=== PATIENT | male | born 1965 | race Two or more races ===

== ENCOUNTER 2019-04-30 15:59 | Emergency (ER) | payer MEDICARE, OTHER ==
[~2019-04-30] VITALS: Ht 167.6 cm; Wt 113.4 kg
[2019-04-30 16:00] VITALS: BP 146/70
--- NOTE | 2019-04-30 16:00 | NUR ---
ED Nurse Note: Pt brought into ED from [facility] by [facility] Med ambulance unit [id number] for c/o n/v x1 day. Pt states he was recently sick and now is having the same symtpoms. Pt also reports nose bleed at 0300 today. Dried blood in nares noted. Pt denies any pain at the moment. Pt is aaox4, no cardiac or respiratory distress noted. Pt is ambulatory with cane. Pt states he is legally blind. Will continue to monitor.
--- NOTE | 2019-04-30 16:02 | Emergency Room Report ---
History of Present Illness General Chief Complaint: Vomiting Source: EMS Present Illness HPI Patient is a 54-year-old male presents after increased nausea and vomiting. Recently had been having increased nonbloody emesis. Reports having some generalized abdominal cramping. Patient states that there have been multiple patients at his facility who have had stomach virus. He had recently been hospitalized at [facility] Denies any abdominal discomfort currently. Reports having an episode of nosebleeding last night. Denies any current dizziness or lightheadedness. Allergies: Uncoded Allergies: PEANUT BUITTER (Allergy, Unknown, 04/30/19) Patient History Reviewed Nursing Documentation: PMH: Agreed; PSxH: Agreed Nursing Documentation-PMH Hx Hypertension: Yes Hx Diabetes: Yes Review of Systems All Other Systems: negative except mentioned in HPI Physical Exam Vital Signs Date Time Temp Pulse Resp B/P (MAP) Pulse Ox O2 Delivery O2 Flow Rate FiO2 04/30/19 15:47 100.0 110 18 146/70 (95) 95 Room Air Sp02 EP Interpretation: reviewed, normal General Appearance: normal inspection, well appearing, no apparent distress, alert, GCS 15 Head: atraumatic Eyes: bilateral eye other - Conjugate gaze blind in right eye ENT: hearing grossly normal, normal voice, other - Clotted nasal blood to the left nare Neck: normal inspection, full range of motion, supple, no bony tend Respiratory: normal inspection, lungs clear, normal breath sounds, no respiratory distress, no retraction, no wheezing Cardiovascular #1: regular rate, rhythm, no edema Gastrointestinal: normal inspection, normal bowel sounds, non tender, soft, no guarding, no hernia Genitourinary: no CVA tenderness Musculoskeletal: normal inspection, back normal, normal range of motion Neurologic: alert, motor strength/tone normal, fire control mechanic III-XII nml as tested, EOM palsy, responsive, speech normal, normal inspection Psychiatric: normal inspection, judgement/insight normal, mood/affect normal Skin: no rash Medical Decision Making Diagnostic Impression: Primary Impression: Gastroenteritis ER Course Presented for nausea and vomiting. Differential diagnosis include was not limited to gastroenteritis, bowel obstruction, appendicitis among others. Because of complexity of patient's case laboratory tests were ordered. Patient does not show any focal tenderness. He was given IV antiemetics.Patient given IV fluids. He was noted to have improvement of symptoms over time. Patient will be discharged back to his facility. He was given medications for symptomatic treatment he was advised to follow-up with primary care physician for recheck and return if worse. The patient is advised to follow up with primary care doctor in 1-2 days. Patient is advised to return if any worsening condition or if any changes in status that are concerning. This report is dictated with [employer] et[employer] database developer software which may occasionally lead to discrepancies related to use of this software. Labs Test 04/30/19 16:10 04/30/19 16:15 White Blood Count 7.3 K/UL (4.8-10.8) Red Blood Count 4.86 M/UL (4.70-6.10) Hemoglobin 14.2 G/DL (14.2-18.0) Hematocrit 42.5 % (42.0-52.0) Mean Corpuscular Volume 87 FL (80-99) Mean Corpuscular Hemoglobin 29.3 PG (27.0-31.0) Mean Corpuscular Hemoglobin Concent 33.5 G/DL (32.0-36.0) Red Cell Distribution Width 13.5 % (11.6-14.8) Platelet Count 153 K/UL (150-450) Mean Platelet Volume 7.9 FL (6.5-10.1) Neutrophils (%) (Auto) % (45.0-75.0) Lymphocytes (%) (Auto) % (20.0-45.0) Monocytes (%) (Auto) % (1.0-10.0) Eosinophils (%) (Auto) % (0.0-3.0) Basophils (%) (Auto) % (0.0-2.0) Differential Total Cells Counted 100 Neutrophils % (Manual) 93 % (45-75) Lymphocytes % (Manual) 6 % (20-45) Monocytes % (Manual) 1 % (1-10) Eosinophils % (Manual) 0 % (0-3) Basophils % (Manual) 0 % (0-2) Band Neutrophils 0 % (0-8) Platelet Estimate Adequate Platelet Morphology Normal Red Blood Cell Morphology Normal Prothrombin Time 10.7 SEC (9.30-11.50) Prothromb Time International Ratio 1.0 (0.9-1.1) Activated Partial Thromboplast Time 27 SEC (23-33) Sodium Level 137 MMOL/L (136-145) Potassium Level 4.6 MMOL/L (3.5-5.1) Chloride Level 99 MMOL/L (98-107) Carbon Dioxide Level 26 MMOL/L (21-32) Anion Gap 12 mmol/L (5-15) Blood Urea Nitrogen 21 mg/dL (7-18) Creatinine 0.9 MG/DL (0.55-1.30) Estimat Glomerular Filtration Rate > 60 mL/min (>60) Glucose Level 303 MG/DL (74-106) Calcium Level 8.3 MG/DL (8.5-10.1) Total Bilirubin 0.4 MG/DL (0.2-1.0) Aspartate Amino Transf (AST/SGOT) 78 U/L (15-37) Alanine Aminotransferase (ALT/SGPT) 63 U/L (12-78) Alkaline Phosphatase 104 U/L (46-116) Troponin I 0.004 ng/mL (0.000-0.056) Total Protein 6.4 G/DL (6.4-8.2) Albumin 3.4 G/DL (3.4-5.0) Globulin 3.0 g/dL Albumin/Globulin Ratio 1.1 (1.0-2.7) Urine Color Pale yellow Urine Appearance Clear Urine pH 5 (4.5-8.0) Urine Specific [place] 1.010 (1.005-1.035) Urine Protein Negative (NEGATIVE) Urine Glucose (UA) 4+ (NEGATIVE) Urine Ketones 2+ (NEGATIVE) Urine Blood Negative (NEGATIVE) Urine Nitrite Negative (NEGATIVE) Urine Bilirubin Negative (NEGATIVE) Urine Urobilinogen Normal MG/DL (0.0-1.0) Urine Leukocyte Esterase Negative (NEGATIVE) Urine RBC 0-2 /HPF (0 - 0) Urine WBC 0-2 /HPF (0 - 0) Urine Squamous Epithelial Cells None /LPF (NONE/OCC) Urine Bacteria Occasional /HPF (NONE) Last Vital Signs Date Time Temp Pulse Resp B/P (MAP) Pulse Ox O2 Delivery O2 Flow Rate FiO2 04/30/19 15:47 100.0 110 18 146/70 (95) 95 Room Air Status: improved Disposition: HOME, SELF-CARE Condition: Stable Scripts Loperamide Hcl/Simethicone (IMODIUM MULTI-SYMPTOM REL CPLT) 1 Each Tablet 1 EACH PO EVERY 12 HOURS, #14 TAB Prov: Ranjith Puckett MD 04/30/19 Ondansetron Odt* (ZOFRAN ODT*) 4 Mg Tab.rapdis 4 MG BC EVERY 8 HOURS PRN for Nausea & Vomiting, #10 TAB 0 Refills Prov: Ranjith Puckett MD 04/30/19 Ranjith Puckett MD Apr 30, 2019 16:02
[2019-04-30 16:37] LABS: HEMATOCRIT 42.5 % (42.0-52.0); HEMOGLOBIN 14.2 G/DL (14.2-18.0); MEAN CORPUSCULAR VOLUME 87 FL (80-99); PLATELET COUNT 153 K/UL (150-450); RED BLOOD COUNT 4.86 M/UL (4.70-6.10); RED CELL DISTRIBUTION WIDTH 13.5 % (11.6-14.8); WHITE BLOOD COUNT 7.3 K/UL (4.8-10.8)
[2019-04-30 16:50] LABS: ANION GAP 12 mmol/L (5-15); BLOOD UREA NITROGEN 21 mg/dL (7-18); CALCIUM 8.3 MG/DL (8.5-10.1); CARBON DIOXIDE 26 MMOL/L (21-32); CHLORIDE 99 MMOL/L (98-107); CREATININE 0.9 MG/DL (0.55-1.30); POTASSIUM 4.6 MMOL/L (3.5-5.1); SODIUM 137 MMOL/L (136-145)
[2019-04-30 16:54] LABS: ALANINE AMINOTRANSFERASE 63 U/L (12-78); ALBUMIN 3.4 G/DL (3.4-5.0); ALBUMIN/GLOBULIN RATIO 1.1 (1.0-2.7); ALKALINE PHOSPHATASE 104 U/L (46-116); ASPARTATE AMINO TRANSFERASE 78 U/L (15-37); BILIRUBIN,TOTAL 0.4 MG/DL (0.2-1.0)
[2019-04-30 17:19] LABS: APPEARANCE,URINE CLEAR; BILIRUBIN, URINE NEGATIVE (NEGATIVE); COLOR,URINE PALE YELLOW; GLUCOSE, URINE (UA) 4+ (NEGATIVE); KETONES,URINE 2+ (NEGATIVE); LEUKOCYTE ESTERASE ,URINE NEGATIVE (NEGATIVE); NITRITE,URINE NEGATIVE (NEGATIVE); PH,URINE 5 (4.5-8.0); PROTEIN,URINE NEGATIVE (NEGATIVE); UROBILINOGEN,URINE NORMAL MG/DL (0.0-1.0)
--- NOTE | 2019-04-30 18:25 | NUR ---
ED Nurse Note: Spoke with Judie Chris at [facility] regarding pt plan of care and what was done in the ER. Nurse aware of pt being transported back to facility.
--- NOTE | 2019-04-30 19:05 | NUR ---
HAND-OFF: Report given to AYSHA Morrell.
[2019-04-30] MEDS ORDERED: IMODIUM MULTI-1 EACH PO (19:12)
[2019-04-30] MEDS ORDERED: ONDANSETRON ODT4 MG BC (19:12)
--- NOTE | 2019-04-30 20:16 | NUR ---
ED Nurse Note: Pt cleared by health care Provider for discharge. DC instructions/prescription was given and explained to pt and verbalized understanding of teachings. All medical deviecs such as ID band and IV site removed. Pt is AAO x4, ambulatory and left with all personal belongings. pt left with [facility] unit # [id number]
[2019-04-30 20:17] VITALS: BP 146/70
== END 2019-05-01 03:22 | disposition home or self-care (01) ==
LOC: EDBD 15:59 → EMR 18:35
DX: K52.9 Noninfective gastroenteritis and colitis, unspecified (principal); I10 Essential (primary) hypertension; E11.9 Type 2 diabetes mellitus without complications; Z91.018 Allergy to other foods
CPT/HCPCS: 36415; 80053; 81001; 84484; 85007; 85025; 85610; 85730; 93005; 96374; 96375; 99284; J2405; J7040; S0028